=== PATIENT | male | born 1975 | race Caucasian/White ===

== ENCOUNTER → 2019-04-16 | Outpatient (CLI) | payer BC ==
--- NOTE | 2019-04-16 12:35 | ECHOS ---
STRESS ECHOCARDIOGRAM INDICATIONS: Hypertension. MEDICATIONS: BP medications. BASELINE HEART RATE: 80 BASELINE BLOOD PRESSURE: 136/73 MAXIMUM HEART RATE: 152 MAXIMUM BLOOD PRESSURE: 202/92 85% MPHR: 149 100% MPHR: 175 METS: 11.1 MAXIMUM STAGE REACHED: 4 TOTAL EXERCISE TIME: 9:30 CLINICAL INFORMATION: Patient was exercised for a total period of 9 minutes and 30 seconds. The peak heart rate of 152 was achieved. Maximum blood pressure of 202/92 mmHg was noted. Resting EKG shows normal sinus rhythm with normal SD interval and QRS duration and normal ST-T waves. No ST-segment depression suggestive of ischemia is noted. Occasional PVCs are noted. The baseline echocardiographic images reveals normal left ventricular chamber size with normal left ventricular systolic function in the immediate postexercise period. Normal increase in the wall thickness and contractility is noted. FINAL IMPRESSION: This stress echocardiographic study is negative for stress-induced ischemia. Patient's exercise tolerance is normal. The patient did not complain of any chest pain during the test. Occasional premature ventricular contractions are noted. MMODL / IJN: [id number] /
== END | disposition home or self-care (01) ==
LOC: RADNMMAIN 10:02
PROVIDERS: ATTEND Family Medicine
DX: I10 Essential (primary) hypertension (principal)
CPT/HCPCS: 93351

== ENCOUNTER 2021-09-14 05:57 | Day surgery (SDC) | payer BC ==
[~2021-09-14 05:57] MED LIST: LACTATED RINGERS 1,000 ML IV SCH
[2021-09-14 06:21] VITALS: TEMP 97.5
[2021-09-14] MEDS ORDERED: PROPOFOL 10 MG/ML 50 ML VIAL IV ONE (06:33)
[2021-09-14] MEDS ORDERED: LIDOCAINE 2% INJ 20 MG/ML (2 ML VIAL) ONE (06:33)
--- NOTE | 2021-09-14 06:53 | P.PCN ---
Date of Procedure: 09/14/21 Procedure(s) Performed: Brief history: Patient is a pleasant scheduled for an elective upper endoscopy as well as colonoscopy as a part of evaluation of abdominal pain/bloating and screening for colon cancer Procedure performed: Esophagogastroduodenoscopy with biopsy Colonoscopy Preoperative diagnosis: Abdominal pain/abdominal bloating Screening for colon cancer [place]est[place]: [facility] [place]: After informed consent was obtained from the patient was brought into the endoscopy unit and IV sedation was administered by anesthesia under continuous monitoring. Initially upper endoscopy was done. The Olympus GF 160 video endoscope was inserted inserted into the mouth and esophagus intubated without any difficulty and was gradually advanced into the stomach and duodenum and carefully examined. The bulb and second part of the duodenum appeared normal. Abscesses were done from the duodenum to rule out celiac disease. The scope was then withdrawn into the stomach adequately insufflated with air and upon careful examination the antrum had mild gastritis and biopsies were done from this area. The body, had mild gastritis and biopsies were done from this area. The cardia and fundus appeared normal. The scope was then withdrawn into the esophagus. The GE junction was located at 40 cm to the incisors. It appeared regular with mild erythema consistent with LA grade a reflux esophagitis.. Rest of the esophagus appeared normal. Patient tolerated the procedure well. At this time the patient continued to remain sedation. Initial digital rectal examination was normal. Olympus CF 160 video colonoscope was then inserted into the rectum and gradually advanced to the cecum without any difficulty. Careful examination was performed as the scope was gradually being withdrawn. The prep was fair.. The cecum, ascending colon, transverse colon, descending colon, sigmoid colon and rectum appeared normal. Retroflexion was performed in the rectum and no lesions were noted. Patient tolerated the procedure well. Impression: 1. Upper endoscopy revealed mild antral gastritis and LA grade A reflux esophagitis 2. Colonoscopy was within normal limits with no evidence of colorectal neoplasia Recommendations: Findings of this examination were discussed with the patient as well as his family. He was advised to follow with the biopsy results. Recurrent a repeat screening colonoscopy in 10 years.
[2021-09-14 07:13] VITALS: BP 153/99; PULSE 69; RESP 16
== END 2021-09-14 07:41 | disposition home or self-care (01) ==
LOC: ORWHC2ENDO 05:57
PROVIDERS: ATTEND Internal Medicine Gastroenterology
DX: Z12.11 Encounter for screening for malignant neoplasm of colon (principal); K29.50 Unspecified chronic gastritis without bleeding; I10 Essential (primary) hypertension; Z79.899 Other long term (current) drug therapy
CPT/HCPCS: 88305; 43239; J2704; J2001; G0121; 45378

== ENCOUNTER → 2022-02-12 | Outpatient (CLI) | payer BC ==
--- NOTE | 2022-02-12 09:28 | CT ---
EXAMINATION TYPE: CT chest w con CT DLP: 250.9 mGycm, Automated exposure control for dose reduction was used. DATE OF EXAM: 02/12/2022 8:31 AM COMPARISON: None CLINICAL INDICATION:Male, 46 years old with history of R06.00 dyspnea; TECHNIQUE: Multiple axial images were obtained through the chest following the administration of 70 c c of Isovue 300. Coronal and sagittal reformats reviewed. FINDINGS: LUNGS/ PLEURA: No focal consolidation, pneumothorax, pleural effusion. Minimal apical bilateral adria eptal emphysematous changes. Minimal lingular and left lower lobe subsegmental atelectasis. No osvaldo rning pulmonary nodules or masses. Elevation of the left hemidiaphragm. AIRWAY: Patent and unremarkable.. HEART: Size within normal limits. No pericardial effusion. MEDIASTINUM: No gross evidence of adenopathy. VASCULATURE: No aortic aneurysm. MUSCULOSKELETAL: No acute osseous abnormalities SOFT TISSUES/LYMPH NODES: Unremarkable. LOWER NECK: No significant findings. UPPER ABDOMEN: No significant findings. IMPRESSION: 1. No acute thoracic process. 2. Minimal emphysematous changes.
== END | disposition home or self-care (01) ==
LOC: RADCTMAIN 08:05
PROVIDERS: ATTEND Family Medicine
DX: J43.9 Emphysema, unspecified (principal); R06.00 Dyspnea, unspecified
CPT/HCPCS: 71260; Q9967

== ENCOUNTER → 2023-08-01 | Outpatient (CLI) | payer BC ==
--- NOTE | 2023-08-01 18:56 | CT ---
EXAMINATION TYPE: CT soft tissue neck w con CT DLP: 562 mGycm, Automated exposure control for dose reduction was used. DATE OF EXAM: 08/01/2023 9:15 AM COMPARISON: None. CLINICAL INDICATION:Male, 48 years old with history of J38.2 VOCAL CORD LESION; PHH, dysphonia, r/o v ocal cord lesion TECHNIQUE: Standard enhanced CT of the neck. Axial sections with coronal and sagittal reformats were obtained. Contrast used:100 mL of Isovue 300 with IV Contrast, (None if empty) Oral contrast used: (None if empty) FINDINGS: Brain: Visualized portions are grossly unremarkable. Orbits: Unremarkable Sinuses: Grossly unremarkable. Spaces of the neck: Clear and symmetric. The left vocal cord is situated more midline while the right is more lateral. No lesion definitively visualized. Musculoskeletal: No acute osseous pathology. Lymph nodes: Multiple nonenlarged lymph nodes are seen along both anterior chains of the neck. No g reater than 1.0 cm in short axis lymph nodes identified. Vascular structures: Visualized major arteries are patent without evidence of aneurysm. 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 Visualized intracranial vasculature is patent. Thoracic Inlet/airway: Airway is patent. The lung apices are clear. Soft tissues/Thyroid: Thyroid and remainder of the soft tissues are unremarkable. Other: none. IMPRESSION The left vocal cord is situated more midline while the right is more lateral. No lesion definitively visualized. Evaluation with direct visualization recommended. No evidence for lymphadenopathy.
== END | disposition home or self-care (01) ==
LOC: RADCTMAIN 07:56
PROVIDERS: ATTEND Otolaryngology
DX: J38.3 Other diseases of vocal cords (principal); J38.2 Nodules of vocal cords; R49.0 Dysphonia
CPT/HCPCS: 70491; Q9967